=== PATIENT | male | born 1960 | race Caucasian/White ===

== ENCOUNTER 2016-12-17 05:34 | Day surgery (SDC) | payer BC ==
[2016-12-17] VITALS (7 sets, daily range): BP systolic 123–198; BP diastolic 74–106
[~2016-12-17] VITALS: Ht 175.3 cm; Wt 97.5 kg
[~2016-12-17 05:34] MED LIST: ALLEGRA-D 121 TABLET PO; FLONASE SENSIM9.9 ML BOTH NARES
[2016-12-17] MEDS ORDERED: NORCO 5/3251 TABLET PO (09:31)
[2016-12-18 03:24] VITALS: BP 138/79
[2016-12-18 07:05] VITALS: BP 165/80
[2016-12-18 07:15] VITALS: BP 164/90
[2016-12-18 09:15] VITALS: BP 146/86
[2016-12-18] MEDS ORDERED: PRINIVIL5 MG PO (10:02)
[2016-12-18 12:16] VITALS: BP 180/90
[2016-12-18 13:15] VITALS: BP 148/86
== END 2016-12-18 13:17 | disposition home or self-care (01) ==
LOC: SDC 05:34 → 2EAST 09:13 → SDC 10:05 → ENRESERV 18:02 → 2SOUTH 18:14 → ENRESERV 18:14 → 2EASTP 20:27
PROC: 0HBV0ZZ Excision of Bilateral Breast, Open Approach (ICD-10-PCS; principal; 2016-12-17)
DX: N62 Hypertrophy of breast (principal); I95.2 Hypotension due to drugs; R00.1 Bradycardia, unspecified; R19.7 Diarrhea, unspecified; Z80.3 Family history of malignant neoplasm of breast; Z83.3 Family history of diabetes mellitus; Z82.49 Family history of ischemic heart disease and other diseases of the circulatory system; Z87.891 Personal history of nicotine dependence
CPT/HCPCS: 87493; 88305; 93005; G0378; J0131; J0360; J0461; J0690; J1100; J1170; J1885; J2250; J2405; J3010; S0020

== ENCOUNTER → 2017-10-09 | Outpatient (CLI) | payer BC ==
[~2017-10-09] VITALS: Ht 172.7 cm; Wt 99.8 kg
[~2017-10-09] MED LIST changes: +LISINOPRIL-HCT1 EAC3 PO; +LORAZEPAM0.5 MG PO; +METOPROLOL SUCC25 MG PO; +NORCO 5/3251 TABLET PO; +PRINIVIL5 MG PO
== END | disposition home or self-care (01) ==
LOC: AMB 07:59
PROC: 0DBL8ZX Excision of Transverse Colon, Via Natural or Artificial Opening Endoscopic, Diagnostic (ICD-10-PCS; principal; 2017-10-09)
PROC: 0DBP8ZX Excision of Rectum, Via Natural or Artificial Opening Endoscopic, Diagnostic (ICD-10-PCS; principal; 2017-10-09)
DX: Z12.11 Encounter for screening for malignant neoplasm of colon (principal); D12.8 Benign neoplasm of rectum; D12.3 Benign neoplasm of transverse colon; K57.30 Diverticulosis of large intestine without perforation or abscess without bleeding; I10 Essential (primary) hypertension; Z90.13 Acquired absence of bilateral breasts and nipples; Z90.49 Acquired absence of other specified parts of digestive tract; Z80.3 Family history of malignant neoplasm of breast; Z83.49 Family history of other endocrine, nutritional and metabolic diseases; Z82.49 Family history of ischemic heart disease and other diseases of the circulatory system; Z88.0 Allergy status to penicillin; Z91.048 Other nonmedicinal substance allergy status
CPT/HCPCS: 88305; 93005; J2405; J7643